=== PATIENT | female | born 1955 | race Caucasian/White ===

== ENCOUNTER → 2019-07-10 08:29 | Outpatient (CLI) | payer OTHER, SELFPAY ==
--- NOTE | 2019-07-10 08:34 | XR_ITS ---
PROCEDURE: XR LUMBAR SPINE 2-3V CLINICAL INDICATION: Low back pain COMPARISON: No exams were available for comparison FINDINGS: There is no acute fracture. 3 millimeters anterior subluxation of L4 on L5 and L5 on S1 are noted. Varying degrees of degenerative disc disease are seen from L1-2 to L5-S1. There is hypertrophic facet disease bilaterally greatest at L4-5 L5-S1. There is sclerosis of both sacroiliac joints left greater than right compatible with sacroiliitis. There is osteitis pubis. Note is made of aortic calcification. IMPRESSION: Multilevel degenerative disc and facet disease with no acute bone pathology. Subluxations as described likely degenerative. Bilateral sacroiliitis and osteitis pubis. Dictated by: Watson Flor 07/10/2019 09:54 Electronically signed by Watson Flor in [place] 07/10/2019 09:54
== END ==
PROVIDERS: PCP Physician Assistant; Visit Provider Physician Assistant
DX: M54.5 Low back pain (principal)
CPT/HCPCS: 72100

== ENCOUNTER → 2020-08-11 18:15 | Outpatient (CLI) | payer OTHER, SELFPAY ==
[2020-08-11 18:36] LABS: Basophils # 0.1 K/mm3 (0-0.2); Basophils % 0.9 % (0.1-2.0); Eosinophils # 0.4 K/mm3 (0.0-0.4); Eosinophils % 4.7 % (0.1-12.0); Hematocrit 39.8 % (37.0-47.0); Hemoglobin 12.9 g/dL (12.2-16.2); Lymphocytes # 2.6 K/mm3 (0.7-4.5); Lymphocytes % 34.9 % (10-50); Mean Corpuscular HGB Conc 32.5 g/dL (31.8-35.4); Mean Corpuscular Volume 92.3 fl (81-99); Mean Platelet Volume 8.4 fl (7.4-10.4); Monocytes # 0.4 K/mm3 (0.1-1.0); Monocytes % 4.7 % (1.7-9.3); Neutrophils # 4.1 K/mm3 (1.8-7.8); Neutrophils % 54.7 % (37.0-80.0); Platelet Count 324 K/mm3 (142-424); Red Blood Count 4.31 M/mm3 (4.20-5.40); Red Cell Distribution Width 12.8 % (11.5-17.5); White Blood Count 7.4 K/mm3 (4.8-10.8)
[2020-08-11 18:42] LABS: Alanine Aminotransferase 17 U/L (12-78); Albumin Level 3.8 g/dl (3.5-5.0); Albumin/Globulin Ratio 1.5 (1.1-1.8); Alkaline Phosphatase 65 U/L (38-126); Anion Gap 13.4 mEq/L (5-15); Aspartate Amino Transferase 22 U/L (14-36); Bilirubin,Total 0.2 mg/dl (0.2-1.3); Blood Urea Nitrogen 16 mg/dl (7-17); Calcium 9.4 mg/dl (8.4-10.2); Carbon Dioxide 30 mmol/L (22.0-30.0); Chloride 103 mmol/L (98-107); Chol/HDL Ratio 2.2 (1-3.5); Cholesterol 147 mg/dl (140-200); Estimated Glomerular Filt Rate 85 ml/min (>60); GFR (African American) 103 ML/MIN (>60); Globulin 2.6 g/dL (1.3-3.2); Glucose 101 mg/dl (74-100); HDL Cholesterol 67 mg/dl (40-60); Potassium 4.4 mmoL/L (3.5-5.1); Sodium 142 mmol/L (136-145); Total Protein,Serum 6.4 g/dl (6.3-8.2); Triglycerides 70 mg/dl (30-150); VLDL Cholesterol 14 mg/dL (0-40)
[2020-08-11 18:58] LABS: 25-OH Vitamin D, Total 21.9 ng/mL (30-100); Free T4 (Free Thyroxine) 1.14 ng/dl (0.78-2.19)
[2020-08-11 19:13] LABS: Thyroid Stimulating Hormone 1.17 uIU/mL (0.465-4.68)
[2020-08-11 19:52] LABS: Hemoglobin A1C 6.2 % (4.0-6.0)
== END ==
PROVIDERS: Visit Provider Physician Assistant
DX: Z00.00 Encounter for general adult medical examination without abnormal findings (principal); R73.09 Other abnormal glucose; E55.9 Vitamin D deficiency, unspecified; Z79.899 Other long term (current) drug therapy
CPT/HCPCS: 80053; 80061; 82043; 82306; 83036; 84439; 84443; 85025

== ENCOUNTER → 2020-08-29 09:39 | Outpatient (CLI) | payer OTHER, SELFPAY ==
[2020-08-29 11:10] LABS: Coronavirus 19 IgG Antibody Positive (Negative); Coronavirus 19 IgM Antibody Negative (Negative)
== END ==
PROVIDERS: Visit Provider Ophthalmology
DX: Z01.812 Encounter for preprocedural laboratory examination (principal); Z20.822 Contact with and (suspected) exposure to COVID-19; H25.11 Age-related nuclear cataract, right eye
CPT/HCPCS: 36415; 86328

== ENCOUNTER 2020-08-30 06:32 | Day surgery (SDC) | payer OTHER, SELFPAY ==
[2020-08-23 13:46] VITALS: BMI 31.2
[2020-08-30 07:08] VITALS: BP 126/70; PULSE 75; RESP 18; TEMP 36.1; O2SAT 99
[2020-08-30 07:28] LABS: POC Glucose,Bedside 108 (70-110)
[2020-08-30 08:05] VITALS: BP 132/64; PULSE 74; RESP 16; O2SAT 100
[2020-08-30 08:10] VITALS: BP 132/65; PULSE 75; RESP 16; O2SAT 100
[2020-08-30 08:15] VITALS: BP 131/66; PULSE 85; RESP 16; O2SAT 100
[2020-08-30 08:20] VITALS: BP 132/67; PULSE 81; RESP 16; O2SAT 100
[2020-08-30 08:23] VITALS: BP 159/86; PULSE 79; RESP 20; TEMP 36.6; O2SAT 97
== END 2020-08-30 08:39 | disposition home or self-care (01) ==
LOC: OR 06:34
PROVIDERS: PCP Nurse Practitioner Women's Health; Visit Provider Ophthalmology
PROC: (CPT 66984; principal; 2020-08-30 07:30)
DX: H25.813 Combined forms of age-related cataract, bilateral (principal); H52.10 Myopia, unspecified eye; F41.9 Anxiety disorder, unspecified; M19.90 Unspecified osteoarthritis, unspecified site; E11.9 Type 2 diabetes mellitus without complications; E78.5 Hyperlipidemia, unspecified; Z88.5 Allergy status to narcotic agent; Z79.899 Other long term (current) drug therapy
CPT/HCPCS: 66984; 82962; V2632

== ENCOUNTER → 2020-09-12 09:05 | Outpatient (CLI) | payer OTHER, SELFPAY ==
[2020-09-12 11:01] LABS: Coronavirus 19 IgG Antibody Negative (Negative); Coronavirus 19 IgM Antibody Negative (Negative)
== END ==
PROVIDERS: Visit Provider Ophthalmology
DX: Z01.812 Encounter for preprocedural laboratory examination (principal); Z20.822 Contact with and (suspected) exposure to COVID-19; H25.12 Age-related nuclear cataract, left eye
CPT/HCPCS: 36415; 86328

== ENCOUNTER 2020-09-13 06:01 | Day surgery (SDC) | payer OTHER, SELFPAY ==
[2020-09-12 11:04] VITALS: BMI 31.2
[2020-09-13 06:23] VITALS: BP 126/76; PULSE 92; RESP 16; TEMP 36.2; O2SAT 98
[2020-09-13 06:28] LABS: POC Glucose,Bedside 115 (70-110)
[2020-09-13 07:56] VITALS: BP 117/63; PULSE 83; RESP 16; O2SAT 98
[2020-09-13 08:01] VITALS: BP 119/66; PULSE 83; RESP 16; O2SAT 99
[2020-09-13 08:06] VITALS: BP 121/69; PULSE 90; RESP 16; O2SAT 99
[2020-09-13 08:19] VITALS: BP 144/77; PULSE 72; RESP 18; TEMP 36.6; O2SAT 97
== END 2020-09-13 08:19 | disposition home or self-care (01) ==
LOC: OR 06:03
PROVIDERS: PCP Nurse Practitioner Women's Health; Visit Provider Ophthalmology
PROC: (CPT 66984; principal; 2020-09-13 07:30)
DX: H25.813 Combined forms of age-related cataract, bilateral (principal); H52.10 Myopia, unspecified eye; E78.5 Hyperlipidemia, unspecified; F41.9 Anxiety disorder, unspecified; M19.90 Unspecified osteoarthritis, unspecified site; E11.9 Type 2 diabetes mellitus without complications; Z87.891 Personal history of nicotine dependence; Z88.5 Allergy status to narcotic agent; Z92.3 Personal history of irradiation
CPT/HCPCS: 66984; 82962; V2632

== ENCOUNTER → 2022-06-19 10:40 | Outpatient (CLI) | payer OTHER, SELFPAY ==
[2022-06-19 19:29] LABS: Coronavirus 19, PCR Not Detected (NotDetected); Influenza A, PCR Not Detected (NotDetected); Influenza B, PCR Not Detected (NotDetected)
== END ==
PROVIDERS: PCP Family Medicine; Visit Provider Family Medicine
DX: R05.9 Cough, unspecified (principal)
CPT/HCPCS: C9803; U0003; U0005

== ENCOUNTER → 2023-04-01 10:22 | Outpatient (CLI) | payer MEDICARE, SELFPAY | PROVIDERS: PCP Physician Assistant; Visit Provider Physician Assistant | DX: N39.0 Urinary tract infection, site not specified (principal); B96.29 Other Escherichia coli [E. coli] as the cause of diseases classified elsewhere | CPT/HCPCS: 87086 ==

== ENCOUNTER → 2023-05-09 08:34 | Outpatient (CLI) | payer MEDICARE, SELFPAY ==
--- NOTE | 2023-05-09 08:40 | CA_ITS ---
APPROVED REPORT EXAM: Comprehensive 2D, Doppler, and color-flow Echocardiogram Engineer Systems: Shakira Beckham CRT Ht: 5 ft 2 in Wt: 143lbs BSA: 1.66 BP: 140/82 mmHg Indications: MVP, Vertigo 2D Dimensions Left Atrium 3.15 cm LVEF (Simon's) 59.10 % LVOT 1.72 cm (M/F) 1.5-2.5 LV Volume 75.80 mL LA Volume 31.00 mL LA Volume Index 18.70 mL/m2 (M/F) 16-34 EF AP4 55.50 % EF AP2 60.8 % EF BP 59.1 % GL Strain -16.9 % M-Mode Dimensions RVDd 2.47 cm (0.9-2.6) LVDd 3.69 cm (3.5-5.7) Ao Diam 3.62 cm (2.0-3.7) LVDs 2.66 cm (3.5-5.7) IVSd 1.56 cm (0.6-1.1) PWd 0.56 cm (0.6-1.1) EF (Teich) 55.00% FS 27.90% EDV (Teich) 57.80 mL TAPSE 1.98 (<1.7) ESV (Teich) 26.00 mL LV Diastology E Decel Time 200 (160-240 msec) E/A Ratio 0.50 MED E' 7.8 (>= 7 cm/sec) MED A' 11.80 cm/s E'/MED E' Ratio 7.21 (<= 14) LAT E' 8.6 (>= 10 cm/sec) LAT A' 14.00 cm/s E/LAT E' Ratio 6.53 (<= 14) Aortic Valve LVOT Max 125.0 (70-110 cm/s) LUZ ELENA Index 1.23 cm2/m2 LVOT VTI 27.60 cm AoV Peak Oli. 175.0 (50-130 cm/s) AI PHT 529.00 ms AO Peak GR. 9.80 mmHg AO Mean GR. 6.10 (<5 mmHg) AO VTI 31.5 (18-25 cm) LUZ ELENA (VTI) 2.04 (2.5-4.5 cm2) Mitral Valve MV E Max Oli. 56.0 (40-130 cm/s) MV A Velocity 113.0 (40-130 cm/s) E/A Ratio 0.50 MV Decel. Time 200 (160-240 ms) Tricuspid Valve TR P. Velocity 189.00 cm/s RAP Estimate 10.00 mmHg RVSP 24.30 mmHg Left Ventricle The left ventricle is normal size. The left ventricular systolic function is normal. The left ventricular ejection fraction is within the normal range. There is increased LV wall thickness. There is normal LV segmental wall motion. Transmitral Doppler flow pattern suggests impaired LV relaxation. LVEF is 55%. Right Ventricle The right ventricle is normal size. The right ventricular systolic function is normal. Atria The left atrium is mildly dilated. The right atrium size is normal. Aortic Valve The aortic valve is mildly thickened. There is no aortic valvular stenosis. Mild aortic regurgitation. Mitral Valve The mitral valve is normal in structure. No evidence of MV prolapse. No evidence of mitral valve stenosis. Mild mitral regurgitation. Tricuspid Valve The tricuspid valve leaflets are thin and pliable. Trace tricuspid regurgitation. RVSP is 14 mmHg + RA pressure. Pulmonic Valve The pulmonary valve is normal in structure. Trace pulmonic regurgitation. Great Vessels The aortic root is normal in size. The ascending aorta is normal in size. The IVC is not well-visualized. Pericardium There is no pericardial effusion. Other Information Study Quality: Fair Conclusion Normal biventricular systolic function. Mild AI. Mild MR. No evidence of MV prolapse. Electronically signed by : Lisbet Romero MD 05/13/2023 23:34:42
--- NOTE | 2023-05-09 14:14 | US_ITS ---
Ultrasound Sonograher: PROCEDURE: US TRANSVAGINAL CLINICAL INDICATION: pelvic pain COMPARISON: No exams were available for comparison FINDINGS: Transvaginal sonographic images of the pelvis were obtained. UTERUS: Surgically absent, the vaginal cuff is intact LEFT OVARY: Surgically absent. RIGHT OVARY: Surgically absent Ovaries are not visualized. There is no fluid in the cul-de-sac. IMPRESSION: 1. The uterus is surgically absent. 2. The vaginal cuff is intact. 3. The ovaries were not seen today. 4. No fluid in the cul-de-sac. Dictated by: Davide Stover MD 05/09/2023 17:33 Davide Stover MD in [place] 05/09/2023 17:33
== END ==
PROVIDERS: PCP Physician Assistant; Visit Provider Physician Assistant
DX: I34.1 Nonrheumatic mitral (valve) prolapse (principal); R10.2 Pelvic and perineal pain
CPT/HCPCS: 76830; 93306